=== PATIENT | male | born 1950 ===

== ENCOUNTER 2019-12-26 08:45 | Inpatient (IN) | payer OTHER ==
[2019-12-26] MEDS ORDERED: MICARDIS80 MG (11:57)
[2019-12-31] MEDS ORDERED: MESALAMINE DR400 MG (08:13)
[2020-01-03] MEDS ORDERED: ULTRACET PO (08:56)
[2020-01-03] MEDS ORDERED: NORFLEX100MG PO (08:57)
[2020-01-03] MEDS ORDERED: INTESTINEX680 M1 PO (08:58)
== END 2020-01-03 09:30 | disposition home or self-care (01) | DRG 331 ==
LOC: O/R 12-31 06:30 → SURH 12-31 06:30
PROVIDERS: ADMIT Surgery; ATTEND Surgery
PROC: 0DJD8ZZ Inspection of Lower Intestinal Tract, Via Natural or Artificial Opening Endoscopic (ICD-10-PCS; 2019-12-31)
PROC: 0DTN4ZZ Resection of Sigmoid Colon, Percutaneous Endoscopic Approach (ICD-10-PCS; principal; 2019-12-31 07:00)
DX: K57.32 Diverticulitis of large intestine without perforation or abscess without bleeding (principal); R19.4 Change in bowel habit; I11.9 Hypertensive heart disease without heart failure; E11.9 Type 2 diabetes mellitus without complications; R00.1 Bradycardia, unspecified; D64.9 Anemia, unspecified

== ENCOUNTER 2022-06-24 10:09 | Outpatient (CLI) | payer OTHER ==
[~2022-06-24 10:09] MED LIST: INTESTINEX680 M1 PO; MESALAMINE DR400 MG; MICARDIS80 MG; NORFLEX100MG PO; ULTRACET PO
== END 2022-06-24 10:12 | disposition home or self-care (01) ==
LOC: SONOGRAMA 10:09
PROVIDERS: ATTEND Pathology Anatomic Pathology & Clinical Pathology
DX: D34 Benign neoplasm of thyroid gland (principal); E04.9 Nontoxic goiter, unspecified